=== PATIENT | female | born 1965 | race Caucasian/White ===

== ENCOUNTER 2018-03-22 06:52 | Day surgery (SDC) | payer OTHER, SELFPAY ==
[2018-03-15 10:20] VITALS: BMI 39.8
[2018-03-22] VITALS (11 sets, daily range): BP systolic 116–142; BP diastolic 48–83; PULSE 73–93; RESP 15–18; TEMP 36.3–36.8; O2SAT 90–100; BMI 39.8
--- NOTE | 2018-03-22 | PATH_ITS ---
[facility] Accession Number: [id number] . 01 Material submitted: . UTERUS AND BILATERAL FALLOPIAN TUBES AND OVARIES . 02 Diagnosis: Uterus and Bilateral Fallopian Tubes and Ovaries, Hysterectomy, Bilateral Salpingo-oophorectomy: 1. Benign leiomyomas. 2. Inactive endometrium with no evidence of neoplasia or hyperplasia. 3. Endosalpingiosis. 4. Benign paratubal cysts. 5. Uterus, bilateral ovaries and fallopian tubes with no evidence of neoplasia. [facility]/03/26/2018 . 02 Electronically signed: . Risa Leon MD, Pathologist NPI- [id number] . 01 Gross description: . Received in formalin, labeled uterus, tubes / ovaries, is a morcellated uterus (129 grams, 12.3 x 11.5 x 4.5 cm in aggregate) and two ovaries (ovary #1-1.9 x 1.4 x 0.7 cm; ovary #2-2.6 x 1.5 x 0.9 cm) with attached fimbriated fallopian tubes (tube #1: length-3.5 cm, diameter-0.3 cm; tube #2: length-3.5 cm, diameter-0.5 cm). The cervix is not present. The specimen cannot be oriented, and the endometrium and myometrium cannot be grossly measured. The uterine parenchyma is hodge and contains multiple solid firm white whorled well-circumscribed homogenous nodules (0.9 x 0.7 x 0.5 cm-1.7 x 1.5 x 0.6 cm). The serosa is hodge smooth and shiny. The ovaries have dull kenny-hodge smooth serosa and hodge solid firm parenchyma with corpus albicans identified. The fallopian tubes have kenny-purple smooth and shiny serosa and hodge unremarkable lumens. Section code: (A1-A3) uterine parenchyma, office services representative; (A4) ovary #1, office services representative serial section; (A5) ovary #2, office services representative serial section; (A6) fallopian tube #1, office services representative serial section; (A7) fimbria #1, bivalved, entirely submitted; (A8) fallopian tube #2, office services representative serial section; (A9) fimbria #2, bivalved, entirely submitted. ([id number]) /[facility] . 02 Pathologist provided ICD-10: D25.9, N94.89 . 02 CPT . 545537 Performed at: 01 [facility] [address] [id number] MD Keven Tan MD Phone: [phone] Performed at: 02 [facility] [address] [place], [place] [id number] MD Risa Leon MD Phone: [phone]
[2018-03-22] MEDS: LACTATED RINGERS 1,000 ML 42 ML IV ×2 (07:43→09:08)
[2018-03-22] MEDS: CEFAZOLIN 2 GM/100 ML FROZ.PIGGY IV (07:48)
--- NOTE | 2018-03-22 07:51 | PM.PREOP ---
Pre-operative Note Interval Note History & Physical reviewed/Exam performed by Physician: Yes Changes to H&P: No
--- NOTE | 2018-03-22 08:39 | SUR.OPER ---
Lithotomy on padded OR bed. [place] Pad Positioner under torso. Head on pillow, arms padded on 90 degree armboards. Legs secured in padded yellow fins stirrups.
[2018-03-22] MEDS: BUPIVACAINE 0.5% W/ EPI (PF) VIAL 30 ML INJ (08:45)
--- NOTE | 2018-03-22 10:00 | P.OP_ITS ---
Operative Date/Time/Diagnoses Date of procedure: 03/22/18 Time of procedure: 09:59 Pre-op diagnosis: Menorrhagia despite endometrial ablation Post-op diagnosis: same Procedure: Procedures Operation Date: 03/22/18 07:45 Actual Procedures Side Surgeon p Laparoscopic Supracervical Hysterectomy w/Bilat S&O Corrina Hodgson MD Indications: Menorrhagia despite endometrial ablation Surgeon: Corrina Hodgson Project Development Engineer: Min Wyatt Anesthesia Type: General Operative Notes Findings: 10 week size multi fibroid uterus Normal ovary Tubes status post ligation bilaterally Omentum stuck confluently to the anterior abdominal wall Closure Type: primary Specimen(s): left tube & ovary, right tube & ovary and uterus Estimated blood loss (mL): 100 Blood products transfused: none Procedure in detail: The patient was taken to the operating room where she was placed in the dorsal supine position. After adequate general endotracheal anesthesia was achieved, she was placed in the dorsal lithotomy position, and prepped and draped in the usual sterile fashion. A timeout was performed. A bivalve speculum was placed into the vagina and the anterior lip of the cervix grasped with a single-tooth tenaculum. The cervical os was sequentially dilated until the ZUMI uterine manipulator could pass easily into the endometrial cavity. The single-tooth tenaculum was removed from the anterior lip of the cervix, and the bivalve speculum was removed from the vagina. Attention was then turned to the abdomen where 6 mL of half percent Marcaine with epinephrine were injected in the umbilical fold. A 5 mm incision was made. The Verhees needle was placed into the peritoneal cavity, and its placement confirmed by aspiration and drop test. The Verhees needle was removed. A 5 mm trocar was placed without difficulty. 2 other incisions were made midway between the pubic symphysis and umbilicus after 5 mL of half percent Marcaine with epinephrine were injected. These were 5 mm incisions. Two 5 mm trochars were placed under direct visualization. A 4th trocar was placed above the pubic symphysis after 6 cc of 0.5% Marcaine with epinephrine were injected and a 5 mm incision was made. The probe was placed into the suprapubic incision and used to hold the omentum out of the way. The right tube and ovary were grasped with an atraumatic grasper. Using the plasma kinetic with settings of 40 W the infundibulopelvic ligament was cauterized and cut. The round ligament and broad ligament were cauterized and cut. The cornua of the uterus was then grasped with an atraumatic grasper. Hemostasis was achieved. The bladder flap was created using the plasma kinetic with cautery and cut [facility] across. The uterine arteries on the right side were extensively cauterized with plasma kinetic. All of this was repeated on the left side. The remainder of the bladder flap was created using the plasma kinetic, and the bladder taken down off the lower uterine segment and cervix. Using the [place], the cervix was amputated from the uterus 2 cm above the uterosacral ligaments, after the ZUMI uterine manipulator was removed from the uterus. A moistened sponge stick was placed into the vagina. There was a small amount of bleeding noted from the posterior edge of the cervix, and this was cauterized for hemostasis. The 12 mm trocar was removed from the suprapubic incision. An Endobag was placed through the suprapubic incision and the uterus placed into the Endobag. The trocar was removed. The Good placed into the endobag. The uterus was hand morcellated in approximately 18 pieces. The Endobag and Good were removed from the peritoneal cavity. The pelvis was copiously irrigated with warm normal saline. No bleeding was noted. The instruments were removed from the abdomen. The CO2 was allowed to escape. The suprapubic incision was closed on the fascia with 0 Vicryl. The subcutaneous layer was closed with 2 simple interrupted sutures with 2 0 Vicryl. All of the incisions were closed with 4-0 undyed Vicryl in a subcuticular fashion. Steri- Strips, 2 x 2, and op site were placed. The moistened sponge stick was removed from the vagina. Sponge, lap, and instrument counts were correct x-2. The patient tolerated the procedure well, was taken to PACU in stable condition. Complications: none Post-operative Condition: stable Disposition: PACU Plan for aftercare: Home after recovery
[2018-03-22] MEDS: INSULIN REGULAR 100 UNIT/ML 3 ML VIAL IV (10:11)
--- NOTE | 2018-03-22 10:35 | SUR.PHASEI ---
1023 pt up to bathroom with assistance. denies any pain.
[2018-03-22] MEDS: OXYCODONE/ACETAMINOPHEN 5/325 TABLET 1 TAB PO ×2 (10:46→12:26)
--- NOTE | 2018-03-22 11:04 | SUR.PHASEII ---
pt resting quietly. pt's dressing dry and intact. no complaints at present.
--- NOTE | 2018-03-22 11:46 | SUR.PHASEII ---
pt up to bathroom and voided small amount.
--- NOTE | 2018-03-22 12:47 | SUR.PHASEII ---
1220 blood glucose was 215
== END 2018-03-22 12:35 | disposition home or self-care (01) ==
LOC: OR 06:53 → AC 09:50
PROVIDERS: Family Provider Internal Medicine; PCP Internal Medicine; Visit Provider Obstetrics & Gynecology
PROC: 0UT94ZL Resection of Uterus, Supracervical, Percutaneous Endoscopic Approach (ICD-10-PCS; CPT 58542; principal; 2018-03-22 07:45)
DX: D25.9 Leiomyoma of uterus, unspecified (principal); E11.9 Type 2 diabetes mellitus without complications; Z79.4 Long term (current) use of insulin; D64.9 Anemia, unspecified; F41.9 Anxiety disorder, unspecified; J45.909 Unspecified asthma, uncomplicated; N94.89 Other specified conditions associated with female genital organs and menstrual cycle; N83.8 Other noninflammatory disorders of ovary, fallopian tube and broad ligament
CPT/HCPCS: 58542; J0330; J0690; J1170; J1885; J2405; J2704; J3010

== ENCOUNTER 2018-04-05 18:07 | Emergency (ER) | payer OTHER, SELFPAY ==
[2018-04-05 18:09] VITALS: BP 149/90; PULSE 102; RESP 16; TEMP 37.4; O2SAT 99; BMI 39.4
--- NOTE | 2018-04-05 20:25 | ED.HEATRA ---
HPI - Head Injury General Chief complaint: Head Injury Stated complaint: Fall, hit head, doctor wants CT scan Time Seen by Provider: 04/05/18 19:58 Source: patient Mode of arrival: ambulatory Limitations: no limitations History of Present Illness HPI Narrative: patient is a 52-year-old female who slipped and fell on the ice yesterday hitting her head. She thinks she lost consciousness briefly. Today she felt a little nauseous money. No vomiting. She took some Motrin for her headache. She now has some mild anterior neck pain. No weakness numbness or tingling. She went to her telemedicine physician for followup hysterectomy. Mentioned this to her recommended that she come to the ER for CT and evaluation. Patient actually does not want a CT. She is just trying to do with her doctor told her to do P Related Data Home Medications Medication Instructions Recorded Confirmed insulin NPH and regular human 30 - 35 units SQ HS #30 ml 02/18/17 03/22/18 [Humulin 70/30 U-100 Insulin] simvastatin 40 mg PO QPM 03/22/18 03/22/18 Previous Rx's Medication Instructions Recorded glimepiride [Amaryl] 4 mg PO BIDCC #180 tab 04/11/17 metformin 1,000 mg PO BIDCC #180 tab 04/11/17 ketoconazole 1 nick TOPICAL QDAY #120 ml 06/09/17 triamcinolone acetonide 1 nick TOPICAL BID #1 tube 06/09/17 oxycodone-acetaminophen [Percocet] 2 tab PO Q4-6H PRN #20 tab 03/22/18 Allergies Allergy/AdvReac Type Severity Reaction Status Date / Time mold [MOLD] Allergy Severe red, dizzy Verified 04/05/18 18:09 dog dander [DOG DANDER] AdvReac Mild sneezing Verified 04/05/18 18:09 cats Allergy Severe asthma Uncoded 12/29/17 08:33 dust AdvReac Intermediate asthma Uncoded 12/29/17 08:33 Review of Systems Review of Systems ROS Unobtainable: All systems reviewed & are unremarkable except as noted in HPI and below Constitutional Denies chills, Denies fever(s), Denies headache(s), Denies lethargy and Denies weakness Eyes Denies change in vision, Denies eye discharge, Denies irritation and Denies loss of vision ENT Ears, Nose, Mouth, and Throat: Denies change in voice, Denies headache(s), Reports neck pain (anterior, now resolving) and Denies sore throat Cardiovascular Denies dyspnea and Denies dyspnea on exertion Respiratory Denies cough, Denies dyspnea, Denies dyspnea on exertion and Denies wheezing Gastrointestinal Gastrointestinal: Denies abdominal pain, Denies change in bowel habits, Denies diarrhea, Denies nausea and Denies vomiting Genitourinary Denies hematuria, Denies flank pain, Denies urinary incontinence and Denies urinary urgency Musculoskeletal Reports neck pain (anterior, now resolving) Integumentary/Breasts Denies pruritus, Denies erythema, Denies rash and Denies wounds Neurologic Reports as per HPI, Denies confusion, Denies headache(s), Denies lack of coordination, Denies loss of vision, Denies convulsions and Denies weakness Psychiatric Denies confusion Allergic/Immunologic Denies wheezing PFSH Medical History Anemia (Acute) Anxiety (Acute) Asthma (Acute) Depression (Acute) Menorrhagia (Acute) Migraines (Acute) Seborrheic dermatitis (Acute) Diabetes mellitus (Chronic) Peripheral neuropathy (Chronic) Surgical History History of bunionectomy of left great toe (Acute) History of bunionectomy of right great toe (Acute 09/14/16) History of endometrial ablation (Acute) Hx of dilation and curettage (Acute) Hx of sinus surgery (Acute) S/P bilateral salpingo-oophorectomy (Resolved ~03/22/18) S/P laparoscopic supracervical hysterectomy (Resolved 03/22/18) Status post hysteroscopy (08/14/15) Family History Grandmother Type II diabetes mellitus Mother Type II diabetes mellitus Social History household members: none Smoking Status: Never smoker Family History Grandmother Type II diabetes mellitus Mother Type II diabetes mellitus Social History household members: none Smoking Status: Never smoker Exam Initial Vital Signs Initial Vital Signs: Vital Signs Temperature 99.3 F 04/05/18 18:09 Pulse Rate 102 H 04/05/18 18:09 Respiratory Rate 16 04/05/18 18:09 Blood Pressure 149/90 H 04/05/18 18:09 Pulse Oximetry 99 04/05/18 18:09 GENERAL: Alert pleasant well-appearing female no acute distress HEENT: Head right-sided tenderness,EOMI, pupils reactive, face symmetric, neck no vertebral tenderness no step-offs CARDIOVASCULAR: Regular rate and rhythm without murmurs, rubs or gallops. RESPIRATORY: Breath sounds equal bilaterally, no wheezes rales or rhonchi. ABDOMEN: Soft, nontender. Normoactive bowel sounds all 4 quadrants. No guarding or rebound. EXTREMITIES: Normal range of motion, no clubbing or edema. Neurovascularly intact NEUROLOGICAL: Alert and oriented x4.Normal gait and speech. Cranial nerves II through XII grossly intact. SKIN: Warm, dry, no laceration, no petechiae, no rashes or lesions. Course Vital Signs - 8 hr 04/05/18 20:27 Pulse Rate 92 H Respiratory Rate 18 Blood Pressure [Left Arm] 157/84 H Pulse Oximetry 100 MDM - Head Injury MDM Narrative Medical decision making narrative: at this time patient does not meet criteria for head CT. She really would prefer not to have any imaging done at this time. He has no neck pain. feels ready and able to go home. [place] CT Head Injury/Trauma Rule from [employer] - Biomolecular Determination on 04/05/2018 All calculations should be rechecked by clinician prior to use RESULT SUMMARY: CT Unnecessary The Citizen [place] Head CT Rule suggests a head CT is not necessary for this patient (sensitivity 83-100% for all intracranial traumatic findings, sensitivity 100% for findings requiring neurosurgical intervention). INPUTS: Age <16 years ?> 0 = No Patient on blood thinners ?> 0 = No Seizure after injury ?> 0 = No GCS <15 at 2 hours post-injury ?> 0 = No Suspected open or depressed skull fracture ?> 0 = No Any sign of basilar skull fracture? ?> 0 = No ?2 episodes of vomiting ?> 0 = No Age ?63 years ?> 0 = No Retrograde amnesia to the event ? 30 minutes ?> 0 = No ?Dangerous? mechanism? ?> 0 = No Discharge Plan Departure Patient Disposition: Home Clinical Impression: Concussion Qualifiers: Encounter type: initial encounter Loss of consciousness presence/duration: without LOC Qualified Code(s): S06.0X0A - Concussion without loss of consciousness, initial encounter Discharge Date/Time: 04/05/18 20:38 Interventions: ED Discharge Assessment Last Done: 04/05/18 20:29 Instructions: Concussion Activity Restrictions/Additional Instructions: *You have been diagnosed with concussion *What to do: try not to hit head again in the next 2 weeks, try to avoid repeat concussion *Continue to take medications as directed Motrin 800 mg every 8 hr with food for 1 week only if needed for pain *Follow up with your primary care provider in 2-3 days *Return to ER if you should have persistent vomiting, increasing headache, visual changes weakness numbness or tingling or any new, worsening or concerning symptoms Prescriptions: No Action insulin NPH and regular human [Humulin 70/30 U-100 Insulin] 100 UNIT/1 ML suspension 30 - 35 units SQ HS Qty: 30 RF: 0 metformin 1,000 MG tablet 1,000 mg PO BIDCC Qty: 180 RF: 3 glimepiride [Amaryl] 4 MG tablet 4 mg PO BIDCC Qty: 180 RF: 3 ketoconazole 2 % shampoo 1 nick Topical QDAY Qty: 120 RF: 11 triamcinolone acetonide 0.1 % cream 1 nick Topical BID Qty: 1 RF: 3 simvastatin 40 mg Tablet 40 mg PO QPM RF: 0 oxycodone-acetaminophen [Percocet] 5-325 mg tablet 2 tab PO Q4-6H PRN (Reason: pain) Qty: 20 RF: 0 Referrals: Eugenio Serrano MD [Primary Care Provider] -
[2018-04-05 20:27] VITALS: BP 157/84; PULSE 92; RESP 18; O2SAT 100
--- NOTE | 2018-04-05 20:27 | PC.NURSE ---
pt states nausea increases when headache increases.
== END 2018-04-05 20:38 | disposition home or self-care (01) ==
PROVIDERS: Emergency Provider Emergency Medicine; Family Provider Internal Medicine; PCP Internal Medicine
DX: S06.0X0A Concussion without loss of consciousness, initial encounter (principal); W01.0XXA Fall on same level from slipping, tripping and stumbling without subsequent striking against object, initial encounter
CPT/HCPCS: 99282

== ENCOUNTER → 2020-02-20 11:35 | Outpatient (CLI) | payer OTHER, SELFPAY ==
[2020-02-20 12:04] LABS: COVID19 -Nasal RAPID Negative (Negative)
== END ==
PROVIDERS: Family Provider Internal Medicine; PCP Internal Medicine; Visit Provider Registered Nurse
DX: J02.9 Acute pharyngitis, unspecified (principal); R05 Cough
CPT/HCPCS: 87635

== ENCOUNTER → 2020-02-20 11:53 | Outpatient (CLI) | payer OTHER, SELFPAY ==
--- NOTE | 2020-02-20 11:55 | DI.RAD.S_ITS ---
PROCEDURE: XR CHEST 2V INDICATIONS: cough TECHNIQUE: 2 views of the chest were acquired. COMPARISON: [facility], , CHEST 2 VIEW, 02/28/2017, 15:44. FINDINGS: Surgical changes and devices: None. Lungs and pleura: Lungs are clear. No pleural effusions or pneumothorax. Mediastinum: Mediastinal contours are normal. Heart size is normal. Bones and chest wall: No suspicious bony abnormalities. Soft tissues appear unremarkable. IMPRESSION: No acute disease. Dictated by: Pb Aguilar M.D. on 02/20/2020 at 12:33 Approved by: Pb Aguilar M.D. on 02/20/2020 at 12:34
[2020-02-20 12:54] LABS: Add Manual Diff / Slide Review NO; Basophils Absolute Auto 0 /uL (0-100); Basophils Percent Auto 0.6 % (0-2); Eosinophils Absolute Auto 100 /uL (0-450); Eosinophils Percent Auto 1.2 % (2-4); Lymphocytes Absolute Auto 1900 /uL (1100-4500); Lymphocytes Percent Auto 26.8 % (25-40); Mean Corpuscular HGB Conc 33.4 % (30-36); Mean Corpuscular Hemoglobin 29.1 PG (26-34); Mean Corpuscular Volume 86.9 fL (80-100); Monocytes Absolute Auto 500 /uL (0-900); Monocytes Percent Auto 7.2 % (3-14); Neutrophils Absolute Auto 4500 /uL (1500-7000); Neutrophils Percent Auto 64.2 % (50-75); Platelet Count 251 X10^3/uL (150-400); Red Blood Cell Count 4.83 X10^6/uL (4.0-5.2); Red Cell Distribution Width 14.1 % (11.6-14.8)
[2020-02-20 13:40] LABS: Alanine Aminotransferase 44 IU/L (<35); Albumin 4.4 g/dL (3.5-5.0); Albumin Globulin Ratio 1.4 (1.0-2.8); Alkaline Phosphatase 109 U/L (38-126); Aspartate Aminotransferase 34 IU/L (14-36); Bilirubin Total 0.3 mg/dL (0.2-1.3); Blood Urea Nitrogen 12 mg/dL (7-17); Calcium 9.4 mg/dL (8.4-10.2); Carbon Dioxide 29 mmol/L (22-32); Chloride 100 mmol/L (98-107); Estimated Glomerular Filt Rate > 60.0 mL/min (>60); Globulin 3.2 g/dL (1.7-4.1); Glucose 213 mg/dL (70-100); HEMOLYSIS < 15 (0-50); Potassium 4.3 mmol/L (3.4-5.1); Sodium 136 mmol/L (137-145); Total Protein 7.6 g/dL (6.3-8.2)
== END ==
PROVIDERS: Family Provider Internal Medicine; PCP Internal Medicine; Referring Provider Registered Nurse; Visit Provider Registered Nurse
DX: R05 Cough (principal); J98.8 Other specified respiratory disorders; J02.9 Acute pharyngitis, unspecified
CPT/HCPCS: 36415; 71046; 80053; 85025; 87635

== ENCOUNTER → 2020-04-13 07:34 | Outpatient (CLI) | payer OTHER, SELFPAY ==
[2020-04-13 07:55] LABS: COVID19 -Nasal RAPID Negative (Negative)
== END ==
PROVIDERS: Family Provider Internal Medicine; PCP Internal Medicine; Visit Provider Nurse Practitioner Family
DX: Z20.822 Contact with and (suspected) exposure to COVID-19 (principal)
CPT/HCPCS: 87635

== ENCOUNTER → 2020-05-14 11:10 | Outpatient (CLI) | payer OTHER, SELFPAY ==
--- NOTE | 2020-05-14 11:11 | DI.RAD.S_ITS ---
PROCEDURE: XR CHEST 2V INDICATIONS: cough, SOB TECHNIQUE: 2 views of the chest were acquired. COMPARISON: [facility], CR, XR CHEST 2V, 02/20/2020, 11:56. FINDINGS: Surgical changes and devices: None. Lungs and pleura: Lungs are clear. No pleural effusions or pneumothorax. Mediastinum: Mediastinal contours are normal. Heart size is normal. Bones and chest wall: No suspicious bony abnormalities. Soft tissues appear unremarkable. IMPRESSION: No acute disease. Dictated by: Pb Aguilar M.D. on 05/14/2020 at 11:44 Approved by: Pb Aguilar M.D. on 05/14/2020 at 11:44
== END ==
PROVIDERS: Family Provider Internal Medicine; PCP Internal Medicine; Referring Provider Nurse Practitioner; Visit Provider Nurse Practitioner
DX: R05 Cough (principal); R06.02 Shortness of breath
CPT/HCPCS: 71046

== ENCOUNTER → 2020-06-01 10:34 | Outpatient (CLI) | payer OTHER, SELFPAY ==
--- NOTE | 2020-06-01 10:35 | DI.RAD.S_ITS ---
PROCEDURE: XR FOOT RT MIN 3V INDICATIONS: right 2nd toe pain TECHNIQUE: 3 views of the foot were acquired. COMPARISON: None. FINDINGS: Bones: Healing stress fractures of the 2nd, 3rd, and 4th proximal metatarsal necks. 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 No suspicious bony lesions. Soft tissues: No tibiotalar joint effusion. Achilles tendon appears normal. IMPRESSION: Healing stress fractures of the proximal necks of the 2nd through 4th metatarsals. Dictated by: Neymar Oropeza M.D. on 06/01/2020 at 13:00 Approved by: Neymar Oropeza M.D. on 06/01/2020 at 13:01
== END ==
PROVIDERS: Family Provider Internal Medicine; PCP Internal Medicine; Referring Provider Internal Medicine; Visit Provider Internal Medicine
DX: M79.674 Pain in right toe(s) (principal); M84.374D Stress fracture, right foot, subsequent encounter for fracture with routine healing; X58.XXXD Exposure to other specified factors, subsequent encounter
CPT/HCPCS: 73630

== ENCOUNTER → 2020-09-30 12:51 | Outpatient (CLI) | payer OTHER, SELFPAY ==
[2020-09-30 14:24] LABS: Hemoglobin A1C% w Est Avg Glu 9.5 % (4.0-6.0)
== END ==
PROVIDERS: Family Provider Internal Medicine; PCP Internal Medicine; Referring Provider Internal Medicine; Visit Provider Internal Medicine
DX: E10.9 Type 1 diabetes mellitus without complications (principal)
CPT/HCPCS: 36415; 83036

== ENCOUNTER → 2020-10-13 10:01 | Outpatient (CLI) | payer OTHER, SELFPAY ==
[2020-10-13 11:02] LABS: COVID19 -Nasal RAPID Negative (Negative)
== END ==
PROVIDERS: Family Provider Internal Medicine; PCP Internal Medicine; Referring Provider Physician Assistant; Visit Provider Physician Assistant
DX: Z20.822 Contact with and (suspected) exposure to COVID-19 (principal); J02.9 Acute pharyngitis, unspecified; R05 Cough
CPT/HCPCS: 87635

== ENCOUNTER → 2020-10-20 16:37 | Outpatient (CLI) | payer OTHER, SELFPAY ==
[2020-10-20 18:13] LABS: COVID19 -Nasal RAPID POSITIVE (Negative)
== END ==
PROVIDERS: Family Provider Internal Medicine; PCP Internal Medicine; Visit Provider Physician Assistant
DX: U07.1 COVID-19 (principal)
CPT/HCPCS: 87635

== ENCOUNTER → 2020-10-28 08:54 | Outpatient (CLI) | payer OTHER, SELFPAY ==
--- NOTE | 2020-10-28 08:55 | DI.RAD.S_ITS ---
PROCEDURE: XR CHEST 2V INDICATIONS: R chest wall tenderness/dull discomfort 5d, covid 16d ago TECHNIQUE: 2 views of the chest were acquired. COMPARISON: [facility], , XR CHEST 2V, 05/14/2020, 11:14. FINDINGS: Examination limited by patient positioning factors. Surgical changes and devices: None. Lungs and pleura: Mild patchy bilateral mid and lower lung ground-glass pulmonary opacities. No pleural effusions or pneumothorax. Mediastinum: Mediastinal contours are normal. Heart size is normal. Bones and chest wall: No suspicious bony abnormalities. Soft tissues appear unremarkable. IMPRESSION: Bilateral pneumonia. Dictated by: Susannah Cano M.D. on 10/28/2020 at 9:11 Approved by: Susannah Cano M.D. on 10/28/2020 at 9:12
== END ==
PROVIDERS: Family Provider Internal Medicine; PCP Internal Medicine; Referring Provider Physician Assistant; Visit Provider Physician Assistant
DX: J18.9 Pneumonia, unspecified organism (principal); R07.81 Pleurodynia; Z86.16 Personal history of COVID-19
CPT/HCPCS: 71046

== ENCOUNTER → 2021-12-31 13:44 | Outpatient (CLI) | payer OTHER, SELFPAY ==
[2021-12-31 14:31] LABS: Hemoglobin A1C% w Est Avg Glu 8.2 % (4.0-6.0)
== END ==
PROVIDERS: Family Provider Internal Medicine; PCP Internal Medicine; Referring Provider Internal Medicine; Visit Provider Internal Medicine
DX: E11.65 Type 2 diabetes mellitus with hyperglycemia (principal)
CPT/HCPCS: 36415; 83036

== ENCOUNTER → 2022-05-23 09:14 | Outpatient (CLI) | payer OTHER, SELFPAY ==
[2022-05-24 14:23] LABS: Fecal Immunochemical Test Negative (Negative)
== END ==
PROVIDERS: Family Provider Internal Medicine; PCP Internal Medicine; Referring Provider Internal Medicine; Visit Provider Internal Medicine
DX: Z12.11 Encounter for screening for malignant neoplasm of colon (principal)
CPT/HCPCS: 82274

== ENCOUNTER → 2022-05-31 07:42 | Outpatient (CLI) | payer OTHER, SELFPAY ==
--- NOTE | 2022-05-31 07:46 | DI.MG.S_ITS ---
BILATERAL DIGITAL SCREENING MAMMOGRAM 3D/2D WITH CAD: 05/31/2022 CLINICAL: Routine screening. Comparison is made to exams dated: 06/23/2017 mammogram and 12/10/2013 mammogram - [facility]. There are scattered areas of fibroglandular density in both breasts (category b / 25%-50% glandular tissue). Current study was also evaluated with a Computer Aided Detection (CAD) system. No significant masses, calcifications, or other findings are seen in either breast. There has been no significant interval change. IMPRESSION: NEGATIVE There is no mammographic evidence of malignancy. A 1 year screening mammogram is recommended. Based on the Tyrer Cuzick model (a risk assessment model) the patient's lifetime risk is 6.4% and her 10 year risk is 2.4%. According to the ACR, ACS, and NCCN guidelines, an annual breast MRI exam along with mammogram is recommended if the patient's lifetime risk is 20% or greater. This exam was interpreted at Station ID: [id number]. NOTE: For mammograms, a report in lay terms will be sent to the patient. Approximately 15% of breast malignancies will not be visualized mammographically. In the management of a palpable breast mass, a negative mammogram must not discourage biopsy of a clinically suspicious lesion. Electronically Signed By: Regina bland/marcio:05/31/2022 12:12:57 letter sent: Normal Exam ACR BI-RADS Category 1: Negative [id number]
== END ==
PROVIDERS: Family Provider Internal Medicine; PCP Internal Medicine; Referring Provider Internal Medicine; Visit Provider Internal Medicine
DX: Z12.31 Encounter for screening mammogram for malignant neoplasm of breast (principal)
CPT/HCPCS: 77063; 77067

== ENCOUNTER → 2022-08-29 07:42 | Outpatient (CLI) | payer OTHER, SELFPAY ==
[2022-08-30 07:09] LABS: x Labcorp Estim. Avg Glu (eAG) 186 mg/dL (.); x Labcorp Hemoglobin A1c 8.1 % (4.8-5.6)
== END ==
PROVIDERS: Family Provider Internal Medicine; PCP Internal Medicine; Referring Provider Internal Medicine; Visit Provider Internal Medicine
DX: E11.65 Type 2 diabetes mellitus with hyperglycemia (principal)
CPT/HCPCS: 36415; 83036

== ENCOUNTER → 2022-12-13 12:07 | Outpatient (CLI) | payer OTHER, SELFPAY ==
[2022-12-13 12:57] LABS: Hemoglobin A1C% w Est Avg Glu 7.6 % (4.0-6.0)
[2022-12-13 13:12] LABS: Alanine Aminotransferase 21 IU/L (<35); Albumin 4.5 g/dL (3.5-5.0); Albumin Globulin Ratio 1.5 (1.0-2.8); Alkaline Phosphatase 75 U/L (38-126); Aspartate Aminotransferase 23 IU/L (14-36); BUN Creatinine Ratio 18.8 (6-22); Bilirubin Total 0.4 mg/dL (0.2-1.3); Blood Urea Nitrogen 13 mg/dL (7-17); Calcium 9.9 mg/dL (8.4-10.2); Carbon Dioxide 31 mmol/L (22-32); Chloride 99 mmol/L (98-107); Cholesterol 202 mg/dL (140-199); Estimated Glomerular Filt Rate > 60 mL/min (>60); Glucose 73 mg/dL (70-100); HDL Cholesterol 53 mg/dL (40-60); HEMOLYSIS < 15 (0-50); LDL Cholesterol Calculated 120 mg/dL (<100); Potassium 4.7 mmol/L (3.4-5.1); Sodium 137 mmol/L (137-145); Total Protein 7.5 g/dL (6.3-8.2); Triglycerides 147 mg/dL (35-150)
[2022-12-13 16:08] LABS: Creatinine Urine Random 56.7 mg/dL; Protein (Total) Urine Random 6 mg/dL (0-12)
[2022-12-13 16:14] LABS: Microalbumin Urine Random < 0.6 mg/dL (0-1.6)
== END ==
PROVIDERS: Family Provider Internal Medicine; PCP Internal Medicine; Referring Provider Internal Medicine; Visit Provider Internal Medicine
DX: E11.65 Type 2 diabetes mellitus with hyperglycemia (principal)
CPT/HCPCS: 36415; 80053; 80061; 82043; 82570; 83036; 84156

== ENCOUNTER → 2023-11-22 07:41 | Outpatient (CLI) | payer OTHER, SELFPAY ==
[2023-11-22 12:59] LABS: Hemoglobin A1C% w Est Avg Glu 6.3 % (4.0-6.0)
== END ==
PROVIDERS: PCP Family Medicine; Referring Provider Family Medicine; Visit Provider Family Medicine
DX: E11.65 Type 2 diabetes mellitus with hyperglycemia (principal)
CPT/HCPCS: 36415; 83036

== ENCOUNTER → 2024-06-12 07:45 | Outpatient (CLI) | payer OTHER, SELFPAY ==
--- NOTE | 2024-06-12 07:46 | DI.MG.S_ITS ---
MM screening mammo BI: 06/12/2024. BI-RADS: 1 CLINICAL: 59-year old female for bilateral screening mammogram. Tyrer-Cuzick lifetime risk of 5.7%. No personal or first-degree family history of breast cancer. PRIOR EXAMS 05/31/2022, 06/23/2017. MAMMOGRAPHY TECHNIQUE: 2D and 3D (tomosynthesis) digital mammographic views obtained, with additional images as needed for full coverage. Current study was also evaluated with a Computer Aided Detection (CAD) system. DENSITY B. There are scattered areas of fibroglandular density. MAMMOGRAPHY FINDINGS Bilateral: No suspicious mass, asymmetry, microcalcification, or other abnormality seen. IMPRESSION: * No evidence of malignancy. RECOMMENDATIONS Bilateral * Annual screening mammography. OVERALL ASSESSMENT CATEGORY BI-RADS-1: Negative. The [employer] recommends annual screening mammography beginning at age 40 for women with average risk of breast cancer. ELECTRONICALLY SIGNED: Keturah Avery M.D. on 06/14/2024 at 08:13:07 AM PT Interpreting Station ID: [id number]
== END ==
PROVIDERS: PCP Family Medicine; Referring Provider Family Medicine; Visit Provider Family Medicine
DX: Z12.31 Encounter for screening mammogram for malignant neoplasm of breast (principal)
CPT/HCPCS: 77063; 77067